=== PATIENT | male | born 1980 | race Hispanic/Latino ===

== ENCOUNTER 2018-02-12 20:04 | Emergency (ER) | payer SELFPAY ==
[2018-02-12] MEDS ORDERED: CEPHALEXIN 500 MG CAPSULE ONE (20:41)
[2018-02-12] MEDS ORDERED: SULFAMETHOX-TMP DS 800/160 TAB ONE (20:42)
[2018-02-12] MEDS ORDERED: IBUPROFEN 600 MG TABLET ONE (20:42)
== END 2018-02-12 21:46 | disposition home or self-care (01) ==
LOC: EDH 20:04
DX: L03.115 Cellulitis of right lower limb (principal)